=== PATIENT | female | born 1950 | race Caucasian/White ===

== ENCOUNTER 2024-11-12 11:26 | Emergency (ER) | payer MEDICARE ==
[2024-11-12 12:38] LABS: BASOPHILS ABSOLUTE AUTO 0.03 K/uL (0.00-0.10); BASOPHILS PERCENT AUTO 0.5 % (0.1-1.3); EOSINOPHILS ABSOLUTE AUTO 0.15 K/uL (0.00-0.40); EOSINOPHILS PERCENT AUTO 2.7 % (0.0-5.4); HEMATOCRIT 42.9 % (34.3-46.0); HEMOGLOBIN 13.8 g/dL (11.2-15.5); IMMATURE GRAN PERCENT AUTO 0.2 % (0.0-0.7); MEAN CORPUSCULAR HEMOGLOBIN 28.8 pg (31.6-35.5); MEAN CORPUSCULAR HGB CONC 32.2 g/dL (31.6-35.5); MEAN CORPUSCULAR VOLUME 89.6 fL (81.4-99.0); MONOCYTES ABSOLUTE AUTO 0.43 K/uL (0.20-0.90); MONOCYTES PERCENT AUTO 7.7 % (3.3-12.6); NEUTROPHILS ABSOLUTE AUTO 3.57 K/uL (1.0-7.6); NEUTROPHILS PERCENT AUTO 63.9 % (40.0-78.1); PLATELET COUNT,PLT 200 K/uL (130-375); RED BLOOD CELL COUNT 4.79 M/uL (3.77-5.24); WHITE BLOOD CELL COUNT,WBC 5.6 K/uL (3.2-11.0)
[2024-11-12 12:43] LABS: IMMATURE GRAN ABSOLUTE AUTO 0.01 K/uL (0.00-0.23)
[2024-11-12 12:54] LABS: ANION GAP 8.5 mmol/L (5.0-14.0); BLOOD UREA NITROGEN,BUN 15 mg/dL (7-18); CALCIUM 9.7 mg/dL (8.5-10.1); CARBON DIOXIDE,CO2 27 mmol/L (21-32); CHLORIDE,CL 106 mmol/L (100-108); ESTIMATED GFR 59 mL/min (>60); GLUCOSE RANDOM 93 mg/dL (74-106); POTASSIUM,K 4.6 mmol/L (3.6-5.2); SODIUM,NA 141 mmol/L (140-148)
== END 2024-11-12 13:26 | disposition home or self-care (01) ==
LOC: JP.ED 11:26
DX: T81.41XA Infection following a procedure, superficial incisional surgical site, initial encounter (principal); I12.9 Hypertensive chronic kidney disease with stage 1 through stage 4 chronic kidney disease, or unspecified chronic kidney disease; N18.9 Chronic kidney disease, unspecified; E78.00 Pure hypercholesterolemia, unspecified; K21.9 Gastro-esophageal reflux disease without esophagitis; Z79.899 Other long term (current) drug therapy; Z88.0 Allergy status to penicillin; Z88.2 Allergy status to sulfonamides; Z88.8 Allergy status to other drugs, medicaments and biological substances; Z88.1 Allergy status to other antibiotic agents; Z91.041 Radiographic dye allergy status
CPT/HCPCS: 36415; 80048; 83605; 85025; 99283